=== PATIENT | female | born 1970 | race Caucasian/White ===

== ENCOUNTER → 2018-08-03 | Outpatient (CLI) | payer OTHER | LOC: M PLARAD 12:47 | DX: M75.81 Other shoulder lesions, right shoulder (principal); M75.40 Impingement syndrome of unspecified shoulder ==

== ENCOUNTER → 2023-11-21 | Outpatient (REF) | LOC: M PLAIMG 14:49 | PROVIDERS: ATTEND Internal Medicine | DX: R52 Pain, unspecified (principal) ==